=== PATIENT | male | born 1960 | race Caucasian/White ===

== ENCOUNTER 2017-05-24 10:27 | Day surgery (SDC) | payer BC, MEDICARE ==
[~2017-05-24] VITALS: Ht 182.9 cm; Wt 100.0 kg
[~2017-05-24 10:27] MED LIST: CYMBALTA30 MG PO; GEMFIBROZIL600 MG PO; NEURONTIN600 MG PO; NORCO 7.5/325 T1 TA1 PO; OMEPRAZOLE20 M1 PO; PLAVIX75 MG PO; PRINIVIL20 MG PO; PROCARDIA10 MG PO; SYMBICORT 16010.2 GM INH; TOPROL XL25 MG PO; VENTOLIN HFA18 GM
[2017-05-24 11:38] VITALS: Ht 182.9 cm; Wt 100.0 kg
[2017-05-24 13:23] LABS: ANION GAP 12.1 mmol/L (8-16); CALCIUM 8.9 mg/dL (8.5-10.1); CARBON DIOXIDE 28.9 mmol/L (21.0-32.0); CREATININE - SERUM 1.6 mg/dL (0.6-1.3)
[2017-05-24 13:26] LABS: BASOPHILS 0.5 % (0-2); EOSINOPHILS 4.1 % (0-7); HEMATOCRIT 46.5 % (42.0-54.0); HEMOGLOBIN 15.6 g/dL (13.5-17.5); IMMATURE GRANULOCYTES 0.5 % (0-5); LYMPHOCYTES 36.3 % (15-50); MCH 31.1 pg (26.0-34.0); MCHC 33.5 g/dL (31.0-37.0); MCV 92.6 fL (80.0-100.0); MEAN PLATELET VOLUME 11.1 fL (7.4-10.4); MONOCYTES 7.4 % (2-11); NEUTROPHILS 51.2 % (40-80); PLATELET COUNT 195 10x3/uL (130-400); RBC 5.02 10x6/uL (4.20-6.10); RDW 14.2 % (11.5-14.5); WBC 9.7 10x3/uL (4.8-10.8)
--- NOTE | 2017-05-24 16:23 | NUR ---
1545 DISCHARGE INSTRUCTIONS GIVEN. HE HAS NO QUESTIONS OR CONCERNS AT THIS TIME. NO PRESCRIPTIONS GIVEN. ESCORTED OUT BY VOLUNTEER.
--- NOTE | 2017-05-28 07:44 | OP ---
PATIENT NAME: KATALINA REINOSO MEDICAL RECORD: [id number] LOCATION:D[facility] ADMISSION DATE: SURGEON: EDINSON DAVIS DO DATE OF OPERATION: 05/24/2017 PROCEDURE: Colonoscopy. INDICATIONS FOR PROCEDURE: Screening for colorectal cancer. SCOPE: Olympus video pediatric colonoscope. MEDICATIONS: Propofol 300 mg IV per anesthesia. WITHDRAWAL TIME: 14 minutes. FINDINGS: Informed consent was given. The patient was made comfortable with the above medication. After reaching an adequate level of sedation by slow IV push, the patient was placed on his left side. A digital rectal examination was performed and it was normal. The endoscope was then advanced under direct visualization through the rectum to the terminal ileum. The scope was slowly withdrawn and mucosa was carefully examined. The prep quality was good. In the descending colon, there were 2 polyps, which were benign-appearing and sessile. It measured approximately 4-6 mm in diameter. Both were removed with hot forceps in 1 piece and completely retrieved. In the sigmoid colon, there were 3 polyps, which were benign-appearing and sessile. It measured approximately 4-6 mm in diameter. They were all removed using hot forceps in 1 piece and completely retrieved. Retroflexion was performed in the rectum with visualization of small nonbleeding internal hemorrhoids. The scope was withdrawn from the patient. The patient tolerated the procedure well and there were no complications. IMPRESSION: 1. Multiple polyps as described above, removed with hot forceps. 2. Internal hemorrhoids, which were not bleeding. PLAN AND RECOMMENDATIONS: 1. Discharge home when recovery parameters are met. 2. Follow up biopsy specimen results. 3. Continue current medications. 4. Continue current diet. 5. Recall colonoscopy in 3-5 years, pending results of pathology from polyps removed today. 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 [place], [place] 05/24/17 [place] [address]
== END 2017-05-24 15:45 | disposition home or self-care (01) ==
LOC: D.OPS 10:27
PROVIDERS: Anesthesiology
DX: Z12.11 Encounter for screening for malignant neoplasm of colon (principal); K63.5 Polyp of colon; K64.8 Other hemorrhoids; Z01.812 Encounter for preprocedural laboratory examination